=== PATIENT | male | born 2000 | race Caucasian/White ===

== ENCOUNTER 2025-01-10 20:00 | Outpatient (CLI) | payer BC, SELFPAY | END 2025-01-10 20:01 | disposition home or self-care (01) | LOC: AMB 01-27 09:00 | PROVIDERS: PCP Family Medicine; Visit Provider Family Medicine | DX: R56.9 Unspecified convulsions (principal) | CPT/HCPCS: A0425; A0427 ==

== ENCOUNTER 2025-01-10 20:23 | Emergency (ER) | payer BC, SELFPAY ==
[2025-01-10] VITALS (8 sets, daily range): BP systolic 106–114; BP diastolic 60–74; PULSE 81–123; RESP 15–23; TEMP 36.7–36.9; O2SAT 96–100; BMI 23.7
--- NOTE | 2025-01-10 20:36 | ED_ITS ---
HPI - General Adult General Chief complaint: Seizure Stated complaint: unspecified complaint Time Seen by Provider: 01/10/25 20:36 History of Present Illness HPI narrative: pt working at [employer], in back of truck unloading. witnessed pt fall to ground around 1999, became pale/ shaky. ems states was out of it for 20 minutes, cleared up just prior to ems arrival. bs 60, ems gave juice . pt alert and oriented to president, date , person. pt thinks he is in [place] ems started iv fluids. pain between shoulder blades , denies neck pain with palpation. pt states 2 years ago he came here for this happening in the past 1x. pt states he hasnt seen neurology for this. 24-year-old young man presenting to the emergency depart via EMS with concern of a seizure. I am not able to have this event precisely described to me. It sounds as though he was out for 20 minutes however. Was slightly confused upon alerting. Prior to passing out he noted his eyes starting to dart about. He sat himself down anticipating a potential problem. This is similar to occurrence last year. Similar movements to his eyes at that time as well. Did have imaging with what sounds like head CT done last year when this occurred which he reports was unremarkable. This occurred in [place]. Prior precipitant appears to have been a hot day and he thinks that he was just too stressed in that way similar to today. Is sore between shoulder blades which he attributes to probably arching as during this event today. No neck or back pain. No head pain no headache. His calves and eyes ache as well. He did not experience sense of palpitations prior to this event. Prior to this event was in usual state of health. No meds, no diagnoses. Denies personal or family history of seizure diagnosis. Related Data Home Medications ?Medication ?Instructions ?Recorded ?Confirmed No Known Home Medications 01/10/2512/23 Allergies Allergy/AdvReac Type Severity Reaction Status Date / Time No Known Drug Allergies Allergy Verified 01/10/25 20:33 Review of Systems Status of ROS: Reports: 6 or more systems reviewed and unremarkable except as noted in History and below PFS PFS Social History Smoking Status: Never smoker Second hand tobacco smoke exposure: No How often do you have a drink containing alcohol: never AUDIT-C Alcohol total score: 0 Non-prescribed substance use: denies use Exam Narrative: Exam Narrative: Pleasant. Calm. NAD. Head is atraumatic other than a faint area of erythema at the right forehead hairline. This might represent a light abrasion. Neck is supple nontender. Midline back nontender. Periscapular musculature is sore to palpation bilaterally. Lungs are clear. Heart in elevated rate and regular rhythm without murmur or gallop. Abdomen is flat soft nontender. Moving all extremities without difficulty. He is not demonstrating any nystagmus. Cranial nerves 2-12 are intact. Pupils are 3-4 mm and equal and briskly reactive. Const: Vital Signs, click to edit/add: Vital Signs - 24 hr 01/10/25 20:29 01/10/25 20:30 01/10/25 20:56 Temperature 98.1 F 98.2 F Pulse Rate 109 H Pulse Rate [Pulse Oximeter] 123 H Respiratory Rate 18 23 Blood Pressure 107/64 Blood Pressure [Le ft Upper Arm] 114/62 Pulse Oximetry 96 98 96 Oxygen Delivery Me thod Room Air 01/10/25 21:01 01/10/25 21:32 01/10/25 22:01 Temperature 98.3 F 98.5 F 98.5 F Pulse Rate 95 83 81 Pulse Rate [Pulse Oximeter] Respiratory Rate 22 18 15 Blood Pressure 106/60 111/74 108/70 Blood Pressure [Le ft Upper Arm] Pulse Oximetry 98 100 99 Oxygen Delivery Me thod 01/10/25 22:12 01/10/25 22:17 Temperature 98.5 F 98.5 F Pulse Rate Pulse Rate [Pulse Oximeter] 83 83 Respiratory Rate 16 16 Blood Pressure Blood Pressure [Le ft Upper Arm] 114/62 114/62 Pulse Oximetry 99 Oxygen Delivery Me thod Room Air Documenting provider has reviewed patient's vital signs: yes Course Vital Signs Vital signs: Initial Vital Signs Respiratory Effort Normal, Spontaneous, Non-Labored 01/10/25 20:24 Respiratory Depth Normal 01/10/25 20:24 Respiratory Pattern Normal 01/10/25 20:24 Vital Signs Temperature 98.1 F 01/10/25 20:29 Pulse Rate 123 H 01/10/25 20:29 Respiratory Rate 18 01/10/25 20:29 Blood Pressure 114/62 01/10/25 20:29 Pulse Oximetry 96 01/10/25 20:29 Oxygen Delivery Method Room Air 01/10/25 20:29 Temperature 98.5 F 01/10/25 22:17 Pulse Rate 83 01/10/25 22:17 Respiratory Rate 16 01/10/25 22:17 Blood Pressure 114/62 01/10/25 22:17 Pulse Oximetry 99 01/10/25 22:12 Oxygen Delivery Method Room Air 01/10/25 22:12 Medications Administered Medications: Discontinued Medications Generic Name Dose Route Start Last Admin Trade Name Gillian PRN Reason Stop Dose Admin Lactated Ringer's 1,000 mls @ 1,000 mls/hr 01/10/25 21:09 01/10/25 22:08 Lactated Ringers 1000 Ml IV 01/10/25 22:08 Infused .Q1H ONE Infusion Medical Decision Making MDM Narrative Medical decision making narrative: This does appear to have been a seizure like event. Is receiving IV fluids. Monitoring on manager monitoring oximetry. Seizure precautions. Differential does include convulsive syncope. Does not appear to be experiencing heat stress otherwise. In addition to fluids initiated by EMS with lactate at 11.6 I did order another L of fluids. I do not think this represents sepsis. Possibly other physical stress. Labs show good renal function. Monitor on manager monitoring and oximetry during time in emergency department without further event. Did discuss this case also with Neurology on-call. Recommendations were for close follow-up and repeat head CT here today. Romero declines further cares including imaging preferring to go. I did discuss reasons for repeat CT scan including potential mass that may have not been seen with prior or bleed or unspecified other. Easily ambulatory from the emergency department with girlfriend. See patient discharge plan for further discussion Stay well-hydrated. Get quality and regular sleep. Recommendations are not to drive for 3 months or pending further recommendations upon follow-up. Recommendations are to follow up with Neurology within the next 2-3 weeks if possible. Local groups would be [facility] or [facility]. Please contact them for an appointment upon recommendation of Neurology as consulted through your visit with the emergency department. I understand you have declined imaging here in in the emergency department today. Lab Data Lab results reviewed: Yes I reviewed the patient's lab results Labs: Lab Results 01/10/25 01/10/25 Range/Units 20:34 21:09 WBC 10.94 (4.50-11.00) K/uL RBC 4.62 (4.30-5.90) m/uL Hgb 14.3 (13.5-17.5) gm/dL Hct 42.3 (37.0-53.0) % MCV 92 (80-100) fL MCH 31 (26-34) pg MCHC 34 (32-36) gm/dL RDW Coeff of Cj 12.0 (11.5-15.5) % Plt Count 254 (140-440) K/uL Neut % (Auto) 43.1 (42.0-72.0) % Lymph % (Auto) 42.4 (20-44) % [place] % (Auto) 8.0 (0.0-11.0) % Eos % (Auto) 4.3 (0.0-7.0) % Baso % (Auto) 0.5 (0.0-3.0) % Neut # (Auto) 4.71 (1.7-7.0) K/uL Lymph # (Auto) 4.64 H (0.90-2.90) K/uL [place] # (Auto) 0.90 (0.00-0.90) K/UL Eos # (Auto) 0.47 (0.00-0.50) K/uL Baso # (Auto) 0.05 (0.00-0.30) K/uL Abs Immat Gran (auto) 0.19 (0.00-0.30) K/uL Imm/Tot Granulo (auto) 1.7 % Sodium 137 (135-149) mmol/L Potassium 3.8 (3.6-5.1) mmol/L Chloride 102 (96-114) mmol/L Carbon Dioxide 13 L (20-32) mmol/L Anion Gap 22 H (7-15) mEq/L BUN 14 (5-24) mg/dL Creatinine 1.1 (0.5-1.5) mg/dL Estimated Creat Clear 117.03 Estimated GFR 96 ml/min Glucose 72 (60-115) mg/dL Lactate 11.6 H* (0.5-1.9) mmol/L Calcium 9.4 (8.4-10.6) mg/dL Magnesium 2.5 (1.5-2.6) mg/dL Lab Acknowledgement Test Added ECG Data Attestation: I personally reviewed and interpreted this ECG as follows: (Sinus tachycardia. Rate of 111) Discharge Plan Discharge Clinical Impression: Syncope Patient Disposition: Home w/ Parent or Adult Condition: Improved Additional Instructions: Stay well-hydrated. Get quality and regular sleep. Recommendations are not to drive for 3 months or pending further recommendations upon follow-up. Recommendations are to follow up with Neurology within the next 2-3 weeks if possible. Local groups would be [facility] or [facility]. Please contact them for an appointment upon recommendation of Neurology as consulted through your visit with the emergency department. I understand you have declined imaging here in in the emergency department today. Prescriptions: No Action No Known Home Medications Follow Up/Referrals: Provider,Not a Local [Primary Care Provider, Family Practice] Stand Alone Forms: [employer] Info Instructions
[2025-01-10 21:02] LABS: Basophils Absolute Auto 0.05 K/uL (0.00-0.30); Basophils Percent Auto 0.5 % (0.0-3.0); Eosinophils Absolute Auto 0.47 K/uL (0.00-0.50); Eosinophils Percent Auto 4.3 % (0.0-7.0); Hematocrit 42.3 % (37.0-53.0); Hemoglobin* 14.3 gm/dL (13.5-17.5); Immature Granulocytes Abs Auto 0.19 K/uL (0.00-0.30); Immature Granulocytes Pct Auto 1.7 %; Lymphocytes Absolute Auto 4.64 K/uL (0.90-2.90); Lymphocytes Percent Auto 42.4 % (20-44); Mean Corpuscular HGB Conc 34 gm/dL (32-36); Mean Corpuscular Hemoglobin 31 pg (26-34); Mean Corpuscular Volume 92 fL (80-100); Neutrophils Absolute Auto 4.71 K/uL (1.7-7.0); Neutrophils Percent Auto 43.1 % (42.0-72.0); Platelet Count* 254 K/uL (140-440); Red Blood Count 4.62 m/uL (4.30-5.90); White Blood Count* 10.94 K/uL (4.50-11.00)
[2025-01-10 21:03] LABS: Slide Review Reflex No
[2025-01-10 21:04] LABS: Lactate* 11.6 mmol/L (0.5-1.9)
--- OUTSIDE RECORDS SUMMARY | 2025-01-10 21:05 | XMS_ITS | Clinical Summary ---
Author Organization [facility] Address [address] [place] [id number] Care Team Providers Care Cat Hooker Name Role Phone [facility] Allergies No known active allergies Medications No known medications Active Problems Problem Noted Date Diagnosed Date Neoplasm of uncertain behavior of skin 7 Viral warts, unspecified 05/09/2007 Unspecified asthma(493.90) 07/23/2006 Immunizations Immunization Administration Dates Next Due AMB Influenza, IIV3 (Age >=3 years)(Flu Clinic Only) 05/27/2008 DTaP 07/21/2005, 1,2000,07/14 DTaP-HIB (TriHIBIT) 08/16/2001 HIB PRP-OMP (PedvaxHIB) 2000,2000 HIB-HepB (Comvax) 02/21/2001 HPV 9 (Gardasil 9) 10/04/2016 Hepatitis A (Peds) 10/04/2016 Hepatitis B (Peds) 2000,2000 Human Papilloma Virus Vaccine 03/19/2013 Inactivated Polio Vaccine 07/21/2005,,2000,07/14 Influenza, IIV3 (Age >=3 years) 05/03/2012,07/21 MENINGOCOCCAL VACCINE 2 VIAL 2MO-55YO (MENVEO) 03/19/2013 MMR 07/21/2005,08/16/2001 Pneumococcal conj 7-Valent (Prevnar 7) 0 08/16/2001,07/14/2001,2000,09/14 Tdap 04/13/2022,03/19/2013 Varicella Vaccine 03/19/2013,05/22/2001 Family History Medical History Relation Name Comments Good Health Father Marcela Other Mother Valeri DEPRESSION Relation Name Status Comments Father Marcela Alive MARCELA Mother Valeri Alive VALERI Sister Alive KAYLI Social History Tobacco Use Types Packs/Day Years Used Date Smoking Tobacco: Former Cigarettes 3 3 Cigars Smokeless Tobacco: Never Tobacco Cessation:Counseling Given: Yes Alcohol Use Standard Drinks/Week Comments No 0 (1 standard drink = 0.6 oz pur e alcohol) PHQ-2 Answer Date Recorded PHQ-2 Score 0 09/23/2018 Sex and Gender Information Value Date Recorded Sex Assigned at Not on file Legal Sex Male 5:42 AM [employer] Gender Identity Not on file Sexual Orientation Not on file Obstetrics History Last Filed Vital Signs Vital Sign Reading Time Taken Comments Blood Pressure 127/63 04/13/2022 5:00 AM CDT Pulse 110 04/13/2022 6:59 AM CDT Temperature 36.9 C (98.4 F) 04/13/2022 2:13 AM CDT Respiratory Rate 18 04/13/2022 2:13 AM CDT Oxygen Saturation 99% 04/13/2022 2:38 AM CDT Inhaled Oxygen Concentration - - Weight 72.7 kg (160 lb 3.2 oz) 04/13/2022 2:18 A M CDT Height 185.4 cm (6' 1) 04/13/2022 2:18 AM CDT Body Mass Index 21.14 04/13/2022 2:18 AM CDT Plan of Treatment Health Maintenance Due Date Last Done Comments HIV for age 15-65 2015 Hepatitis C screening for age 18-79 2018 Depression screening for age 12+ 10/09/2018 10/09/2017, 10/09/2017, 10/04/2016 BMI (ht and wt on same day) for age 18+ 06/19/2019 06/19/2018 COVID-19 vaccine series ( season) 2024 08/24/2021 Influenza Vaccine (Season Ended) 2025 05/03/2012, 05/27/2008, 07/21/2005 Tetanus booster 04/13/2032 04/13/2022, 03/19/2013 Hepatitis B series for 19+ Completed 02/21, 2000, 2000 Pneumococcal series for age 6-49 Aged Out 08/16/2001, 07/14/2001, 2000, Additional history exists No longer eligible based on patient's age to complete this topic HPV series for age 9-26 Completed 10/04/2016, 03/19 Tdap Completed 04/13/2022, 03/19/2013 Insurance [address] [place] [address] [facility] [place] Care Teams Cat Hooker Relationship Specialty Start Date End Date Clinic, [address] [place] [id number] PCP - General 03/22/19
[2025-01-10 21:06] LABS: Chloride* 102 mmol/L (96-114); Sodium* 137 mmol/L (135-149)
[2025-01-10 21:07] LABS: Potassium* 3.8 mmol/L (3.6-5.1)
[2025-01-10 21:09] LABS: Anion Gap 22 mEq/L (7-15); Blood Urea Nitrogen* 14 mg/dL (5-24); Carbon Dioxide* 13 mmol/L (20-32); Creatinine* 1.1 mg/dL (0.5-1.5); Est. Creatinine Clearance* 117.03; Estimated Glomerular Filt Rate 96 ml/min
[2025-01-10 21:10] LABS: Calcium* 9.4 mg/dL (8.4-10.6); Glucose* 72 mg/dL (60-115)
[2025-01-10] MEDS: LACTATED RINGERS 1000 ML 1,000 ML IV (21:17)
[2025-01-10 21:23] LABS: Magnesium* 2.5 mg/dL (1.5-2.6)
== END 2025-01-10 22:17 | disposition home or self-care (01) ==
PROVIDERS: Emergency Provider Family Medicine
DX: R55 Syncope and collapse (principal)
CPT/HCPCS: 36415; 80048; 83605; 83735; 85025; 93005; 94761; 96360; 99284; J7120